=== PATIENT | female | born 1960 | race African-American/Black ===

== ENCOUNTER 2018-09-06 09:28 | Emergency (ER) | payer MEDICARE, MEDICAID ==
[~2018-09-06] VITALS: Ht 165.1 cm; Wt 82.0 kg
[2018-09-06 10:03] VITALS: BP 132/73
== END 2018-09-06 10:15 | disposition home or self-care (01) ==
LOC: ER 09:50
DX: Z00.8 Encounter for other general examination (principal); F41.0 Panic disorder [episodic paroxysmal anxiety]; F31.9 Bipolar disorder, unspecified; R03.0 Elevated blood-pressure reading, without diagnosis of hypertension; F17.210 Nicotine dependence, cigarettes, uncomplicated; Z71.6 Tobacco abuse counseling
CPT/HCPCS: 99284; 99406